=== PATIENT | male | born 1990 | race Caucasian/White ===

== ENCOUNTER 2024-07-10 09:50 | Emergency (ER) | payer OTHER, SELFPAY ==
--- NOTE | 2024-07-10 10:10 | ED.GENMED ---
ED Provider Triage
<Helga Bangura PA-C - Last Filed: 07/10/24 10:15>
-
Patient seen by provider in Triage?: Seen in Triage
A medical screening examination has been initiated by a qualified medical provider. Based on the assessment performed at this time, it has been determined that an emergent medical condition may exist and the patient has been informed that further
medical evaluation and possible additional diagnostic testing may be needed.
HPI: This is a medical evaluation conducted in person to initiate diagnostic evaluation and provide initial therapeutics. Please see further documentation by the treating clinician.
33-year-old male history of hypothyroid presents for nausea and vomiting for the last several days, vomiting over 10 times, inability to tolerate oral liquids today. He has intermittent abdominal cramps. He is not having any diarrhea. He also has
a dry cough and a sore throat. History of remote appendectomy
GENERAL: Alert , in no apparent distress, pale, nauseated
ENT: No visible abnormalities
LUNGS: No acute respiratory distress
NEUROLOGICAL: Alert and oriented
SKIN: Skin intact. No visible changes.
MUSCULOSKELETAL: Moving extremities normally
PSYCH: Normal and appropriate interaction.
33-year-old male presenting for nausea and vomiting. He denies marijuana use or alcohol use. Afebrile, pale, borderline tachycardic
abdomen soft and nontender.
Will start with flu, COVID, belly labs and a Zofran ODT
History of Present Illness
<Helga Bangura PA-C - Last Filed: 07/10/24 10:15>
General
Chief Complaint: Abdominal Symptoms
Time Seen by Provider: 07/10/24 11:04
<Scotty Cummings DO - Last Filed: 07/10/24 12:58>
General
Source: patient
Exam Limitations: none
History of Present Illness
History of Present Illness:
See MDM
Past History
<Helga Bangura PA-C - Last Filed: 07/10/24 10:15>
Past History
ED Past Medical History: Asthma
ED Past Surgical History: Appendectomy, Orthopedic and Tonsilectomy
Social History
Tobacco: Non-smoker
Alcohol: None
Drug: None
Personal: Single
Living: with family
Employment: Student
Family History
Family History: Other (nc)
Phy Exam
<Scotty Cummings, - Last Filed: 07/10/24 12:58>
Physical Exam
Physical Exam:
See MDM
Course
<Helga Bangura PA-C - Last Filed: 07/10/24 10:15>
Orders/Labs/Results
Orders:
Orders
07/10/24 10:13
Ondansetron Orally Disint [Zofran Odt (Orally Disintegrating)] 4 mg PO NOW STA
07/10/24 10:14
Ondansetron Orally Disint [Zofran Odt (Orally Disintegrating)] 4 mg .ROUTE .STK-MED ONE
07/10/24 10:23
Complete Blood Count/With Diff Urgent
Comprehensive Metabolic Panel Urgent
Lipase Urgent
07/10/24 10:25
COVID-19 Antigen Urgent
Source: Nasal Swab
Influenza A+B Rapid Molecular Urgent
JASON Source: Nasal Swab
Specimen Description:
07/10/24 11:07
0.9% Sodium Chloride 1000 ml [Nss] 1,000 ml IV BOLUS
Ketorolac [Toradol] 30 mg IV NOW STA
Ondansetron Injectable [Zofran] 4 mg IV NOW STA
07/10/24 11:08
CT Abd/pelvis W Iv Cont Urgent
Comment: prior appendectomy
Reason For Exam: generalized abd pain, N/V
Abnormal Lab Results
07/10/24
10:23
MCH 31.3 H pg
(27.0-31.0)
MPV 13.0 H fL
(7.4-10.4)
Absolute Monos (auto) 1.0 H 10^3/uL
(0.1-0.6)
Lymphocytes % 16.5 L %
(20.5-51.1)
Monocytes % 12.7 H %
(1.7-9.3)
Carbon Dioxide 17 L mmol/L
(22-30)
Glucose 109 H mg/dl
(70-99)
Calcium 10.3 H mg/dl
(8.4-10.2)
Total Bilirubin 1.4 H mg/dl
(0.2-1.3)
Albumin 5.1 H g/dl
(3.5-5.0)
07/10/24 10:23
07/10/24 10:23
Vital Signs
Initial and Last Documented VS:
Initial Vital Signs
Temp Pulse Resp BP Pulse Ox
98.6 F 98 16 149/97 98
07/10/24 10:11 07/10/24 10:11 07/10/24 10:11 07/10/24 10:11 07/10/24 10:11
Last Documented Vital Signs
Temp Pulse Resp BP Pulse Ox
98.6 F 98 16 149/97 98
07/10/24 10:11 07/10/24 10:11 07/10/24 10:11 07/10/24 10:11 07/10/24 10:11
<Scotty Cummings, DO - Last Filed: 07/10/24 12:58>
Orders/Labs/Results
Orders:
Orders
07/10/24 10:13
Ondansetron Orally Disint [Zofran Odt (Orally Disintegrating)] 4 mg PO NOW STA
07/10/24 10:14
Ondansetron Orally Disint [Zofran Odt (Orally Disintegrating)] 4 mg .ROUTE .STK-MED ONE
07/10/24 10:23
Complete Blood Count/With Diff Urgent
Comprehensive Metabolic Panel Urgent
Lipase Urgent
07/10/24 10:25
COVID-19 Antigen Urgent
Source: Nasal Swab
Influenza A+B Rapid Molecular Urgent
JASON Source: Nasal Swab
Specimen Description:
07/10/24 11:07
0.9% Sodium Chloride 1000 ml [Nss] 1,000 ml IV BOLUS
Ketorolac [Toradol] 30 mg IV NOW STA
Ondansetron Injectable [Zofran] 4 mg IV NOW STA
07/10/24 11:08
CT Abd/pelvis W Iv Cont Urgent
Comment: prior appendectomy
Reason For Exam: generalized abd pain, N/V
Abnormal Lab Results
07/10/24
10:23
MCH 31.3 H pg
(27.0-31.0)
MPV 13.0 H fL
(7.4-10.4)
Absolute Monos (auto) 1.0 H 10^3/uL
(0.1-0.6)
Lymphocytes % 16.5 L %
(20.5-51.1)
Monocytes % 12.7 H %
(1.7-9.3)
Carbon Dioxide 17 L mmol/L
(22-30)
Glucose 109 H mg/dl
(70-99)
Calcium 10.3 H mg/dl
(8.4-10.2)
Total Bilirubin 1.4 H mg/dl
(0.2-1.3)
Albumin 5.1 H g/dl
(3.5-5.0)
07/10/24 10:23
07/10/24 10:23
Vital Signs
Initial and Last Documented VS:
Initial Vital Signs
Temp Pulse Resp BP Pulse Ox
98.6 F 98 16 149/97 98
07/10/24 10:11 07/10/24 10:11 07/10/24 10:11 07/10/24 10:11 07/10/24 10:11
Last Documented Vital Signs
Temp Pulse Resp BP Pulse Ox
98.6 F 98 16 149/97 98
07/10/24 10:11 07/10/24 10:11 07/10/24 10:11 07/10/24 10:11 07/10/24 10:11
<Scotty Cummings, DO - Last Filed: 07/10/24 12:58>
MDM/Problems Addressed
Differential Diagnosis Includes:
HPI and MDM Narrative:
33-year-old male presenting with nausea, vomiting and abdominal pain for the past several days. Denies sick contacts. On exam, patient is uncomfortable and appears dehydrated. He complains of generalized abdominal pain but has had his appendix
removed in the past. Given his discomfort, will obtain CT. Will treat as likely viral gastroenteritis with fluids and Zofran
Physical exam
General: Mildly uncomfortable
HEENT: protecting airway. Dry mucous membranes
Neck: appears supple
CV: No evidence of cyanosis
Resp: No accessory muscle use
Abd: Non-distended. Generalized tenderness. No rebound
Extremities: No deformities
Neuro: alert
Psych: Normal affect
Skin: Intact
Problems Addressed including Acute and Chronic Conditions affecting care:
1. Abdominal pain with nausea and vomiting
Acuity: acute
Prognosis: stable
Details: Likely viral gastroenteritis. Will obtain CT
Updates
CT without acute pathology. Discussed the incidental finding of persistent splenomegaly and discussed outpatient follow-up
Differential Diagnosis (but not limited to): Gastroenteritis, colitis
Testing considered: Abdominal ultrasound
Drug therapy (if applicable): OTC meds, please see d/c instruction regarding Rx drugs
Amount and/or Complexity of Data Reviewed
Clinical info obtained from: Patient
External data reviewed: N/A
Labs I independently reviewed (but not limited to): White blood cell count normal
Radiology: The CT scan was personally and independently reviewed. In addition, official CT report reviewed.
Pulse Ox: not hypoxic
EKG independently reviewed: N/A
Adjunct Professor Of Law: N/A
Critical Care: N/A
Risk of Complication:
Social Determinants of health: Good social support
Discussed with other providers: N/A
Escalation of Care includes Admit/Obs: After being observed in the Emergency Department, pt stable for discharge.
Occasional wrong word or 'sound a like' substitutions may have occurred due to the inherent limitations of voice recognition software. Read the chart carefully and recognize, using context, where substitutions have occurred.
<Scotty Cummings DO - Last Filed: 07/10/24 12:58>
*Critical Care Note
Total Time (30-74mins, 75-104mins- exclusive of procedures): Not Applicable
ED Attending Note
<Helga Bangura PA-C - Last Filed: 07/10/24 10:15>
-
Portions of this chart may have been created with voice recognition software.� Occasional wrong word or��sound alike� substitutions may have occurred due to the inherent limitations of voice recognition software.
Discharge Plan
Departure
Patient Disposition: Home (Routine Discharge)
Date of Disposition: 07/10/24
Time of Disposition: 12:57
Patient with high blood pressure during this ER visit?: Yes
Discharge Problem:
Viral gastroenteritis
Instructions: Viral gastroenteritis in adults, BLOOD PRESSURE
Prescriptions:
New
ondansetron 4 mg Tablet,Disintegrating
4 mg PO BIDPRN PRN (Reason: nausea/vomiting) Qty: 10 0RF
No Action
mirtazapine 45 MG tablet
45 mg PO DAILY
Lamictal
150 mg PO HS
polyethylene glycol 3350 17 GRAMS powder in packet
17 grams PO DAILYPRN PRN (Reason: CONSTIPATION) Qty: 30 0RF
pantoprazole 40 MG tablet,delayed release (DR/EC)
40 mg PO BID Qty: 60 0RF
lidocaine 1 PATCH adhesive patch,medicated
1 patch topical DAILY Qty: 7 0RF
baclofen 10 MG tablet
10 mg PO TID Qty: 42 0RF
prednisone 10 MG tablet
10 mg PO .TAPER Qty: 30 0RF
Rx Instructions:
Take 40mg daily x3days, 30mg daily x3days,
20mg daily x3days, 10mg daily x3days.
oxycodone-acetaminophen 5 MG/325 MG tablet
1 tab PO Q4HPRN PRN (Reason: Pain) Qty: 24 0RF
docusate sodium 100 MG capsule
100 mg PO BIDPRN PRN (Reason: Constipation ) Qty: 60 0RF
Referrals:
Abdon Walsh DO [Family Provider] -
Activity Restrictions/Additional Instructions:
Please return for any worsening symptoms.
You may return at any time if you have further concerns.
Please follow up with your doctor at the first available appointment, preferably this week.
Thank you for choosing [facility].
Interventions
Interventions:
*Risk Screen - Suicide Last Done: 07/10/24 10:11
*Neglect/Abuse Screening Last Done: 07/10/24 10:11
ED- Fall Risk Assessment Last Done: 07/10/24 11:32
YK-Dcqroc-[id number] Assessment Last Done: 07/10/24 11:32
Discharge Date and Time
Print Language: ROMANIAN
[2024-07-10 10:11] VITALS: BP 149/97
[2024-07-10] MEDS: ZOFRAN ODT (ORALLY DISINTEGRATING) 4 MG PO (10:14)
[2024-07-10 10:38] LABS: % Basophils 0.5 % (0-2); % Eosinophils 2.3 % (0-6); % Immature Granulocytes 0.1 % (0-0.5); % Lymphocytes 16.5 % (20.5-51.1); % Monocytes 12.7 % (1.7-9.3); % Neutrophils 67.9 % (42.2-75.2); Absolute Eosinophils 0.2 10^3/uL (0-0.7); Absolute Lymphocytes 1.3 10^3/uL (1.2-3.4); Absolute Neutrophils 5.4 10^3/uL (1.4-6.5); Hemoglobin 17.5 g/dL (13.0-18.0); Mean Corp Hgb Conc. 36.5 g/dL (33.0-37.0); Mean Corpuscular Hgb 31.3 pg (27.0-31.0); Mean Corpuscular Volume 85.7 fL (80.0-94.0); Nucleated Red Blood Cells % 0 % (-); Platelet Count 196 10^3/uL (130-400); Red Cell Dist. Width 11.9 % (11.5-14.5); White Blood Cell Count 7.9 10^3/uL (4.8-10.8)
[2024-07-10 10:47] LABS: COVID-19 Antigen Negative (Negative)
[2024-07-10 10:51] LABS: ALT (SGPT) 37 U/L (0-50); AST (SGOT) 28 U/L (17-59); Albumin 5.1 g/dl (3.5-5.0); Alkaline Phosphatase 102 U/L (38-126); Blood Urea Nitrogen 13 mg/dl (9-20); Calcium 10.3 mg/dl (8.4-10.2); Carbon Dioxide 17 mmol/L (22-30); Chloride 106 mmol/L (98-107); Glucose 109 mg/dl (70-99); Lipase 35 U/L (23-300); Potassium 4.4 mmol/L (3.5-5.1); Sodium 139 mmol/L (135-145); Total Bilirubin 1.4 mg/dl (0.2-1.3); Total Protein 7.7 g/dl (6.3-8.2); eGFR > 60.00
[2024-07-10] MEDS: ZOFRAN 4 MG IV (11:20)
[2024-07-10] MEDS: TORADOL 30 MG IV (11:20)
[2024-07-10] MEDS: NSS 1000 IV (11:22)
[2024-07-10 13:15] VITALS: BP 146/61
== END 2024-07-10 13:27 | disposition home or self-care (01) ==
LOC: EMR 09:50
PROVIDERS: Physician Assistant; EMERGENCY PHYSICIAN Student in an Organized Health Care Education/Training Program; FAMILY PHYSICIAN Family Medicine
DX: A08.4 Viral intestinal infection, unspecified (principal); E03.9 Hypothyroidism, unspecified; J45.909 Unspecified asthma, uncomplicated; Z90.49 Acquired absence of other specified parts of digestive tract
CPT/HCPCS: 96374; 96375; 96361; 99284; 74177; 80053; 83690; 85025; 87502; 87811; Q9967